=== PATIENT | female | born 2005 | race Caucasian/White ===

== ENCOUNTER 2023-10-02 08:56 | Emergency (ER) | payer OTHER, SELFPAY ==
[2023-10-02 09:05] VITALS: BP 119/70; PULSE 64; RESP 18; TEMP 36.3; O2SAT 100
[2023-10-02 09:06] VITALS: BP 119/70; PULSE 64; RESP 18; TEMP 36.3; O2SAT 100
--- NOTE | 2023-10-02 09:19 | ED.URI ---
HPI - URI/Sore Throat General Chief Complaint: Upper Respiratory Infection Stated Complaint: Cold symptoms Source: patient and RN notes reviewed Mode of arrival: ambulatory Limitations: no limitations History of Present Illness HPI Narrative: 18-year-old female presented for complaint of nasal congestion, post nasal drainage, sinus pressure and cough for one week. Denies sob, wheezing, n/v/d/f/c. Taking Mucinex and ibuprofen. Family with similar symptoms. MD elicited complaint: cough Related Data Allergies Allergy/AdvReac Type Severity Reaction Status Date / Time Penicillins Allergy Severe Rash Verified 10/02/23 09:06 Review of Systems Review of Systems: CONSTITUTIONAL: Endorses malaise, denies chills, sweats, fever EYES: Denies visual changes, redness, or discharge ENT: Reports rhinorrhea, congestion, sinus pain, denies otalgia, sore throat CARDIOVASCULAR: Denies chest pain, palpitations, edema RESPIRATORY: Reports cough, post nasal drainage. Denies dyspnea GASTROINTESTINAL: Denies abdominal pain, nausea, vomiting, diarrhea SKIN: Denies rash or itching MUSCULOSKELETAL: denies myalgia NEUROLOGIC: Denies headache [facility] Surgical History Surgical History [place] teeth removed (04/2021) Family History Family History Father Skin cancer Depression Mother Hypertension Heart disease Thyroid disorder Sibling Heart disease Thyroid disorder Grandparent Leukemia Hypertension Heart disease Grandparent Alcoholism Depression Diabetes mellitus Social History Social History Smoking status: Never smoker Alcohol intake: current Drinks per week: 1 Substance use: never Substance use type: does not use Living arrangements: with family Occupation/Education: student Additional occupation/education comments: [employer] Gender identity (if verbalized by the patient): Female Agree to blood products: No Exam Narrative: GENERAL: well-appearing, nontoxic no acute distress. HEAD: Normocephalic EYES: PERRLA, conjunctivae clear ENT: Mucous membranes moist. TMs pearly rios with dull light reflex bilaterally; no tragal tenderness. Oropharynx not erythematous without lesions or exudate, no drooling, no hoarseness, no trismus, uvula midline. No tripod positioning, muffled voice, soft palate or pharyngeal wall bulging NECK: Supple. No lymphadenopathy CHEST: Clear to auscultation, breath sounds equal. HEART: Regular rate and rhythm. No murmur heard. SKIN: Warm, dry, no rash. NEURO: Alert and oriented x3. PSYCH: Normal mood and affect Course Course Emergency Course: Patient is aware of diagnosis, understands and agrees to treatment plan. Anticipatory guidance given. Patient agrees to follow-up as directed and is aware of reasons to seek care at the emergency department. Portions of this record may have been created with voice recognition software Level of Care: Express Care Visit Vital Signs Vital signs: Vital Signs Temperature 97.3 F L 10/02/23 09:05 Pulse Rate 64 10/02/23 09:05 Respiratory Rate 18 10/02/23 09:05 Blood Pressure 119/70 10/02/23 09:05 Pulse Oximetry 100 10/02/23 09:05 Oxygen Delivery Room Air 10/02/23 09:05 Temperature 97.3 F L 10/02/23 09:06 Pulse Rate 64 10/02/23 09:06 Respiratory Rate 18 10/02/23 09:06 Blood Pressure 119/70 10/02/23 09:06 Pulse Oximetry 100 10/02/23 09:06 Oxygen Delivery Room Air 10/02/23 09:06 reviewed MDM - URI/Sore Throat MDM Narrative Medical decision making narrative: Discussed physical exam findings.Discussed indication for supportive measures, pt will only start abx should sx persist/worsen after 3-5 more days. Advised supportive measures and signs/symptoms to go to the ER. Pt is appropriate for outpt treatment and f/u. Differential D
== END 2023-10-02 09:31 | disposition home or self-care (01) ==
PROVIDERS: Emergency Provider Nurse Practitioner Family
DX: J06.9 Acute upper respiratory infection, unspecified (principal)
CPT/HCPCS: 99213; G0463

== ENCOUNTER 2025-01-29 08:16 | Emergency (ER) | payer OTHER, SELFPAY ==
--- OUTSIDE RECORDS SUMMARY | 2022-03-11 06:10 | XMS_ITS | Continuity of Care Document ---
Author Organization [facility] Address [address] [place] [address] Phone Care Team Providers Care Procurement Inspector Name Role Phone Christine Hyatt MD Unavailable Unavailable Allergies, Adverse Reactions, Alerts Substance Reaction Status Criticality penicillin V Hives Active No Information Procedures Procedure Date Brief Emotional/Behavioral A ssessment, With Scoring/Doct, Per Stndrd Instrument Pt inelig neg scrn depres IMMUN ADMIN (INC PERCUTANEOUS) EACH ADDT L FLU VAC NO PRSV 4 ROBERTA, 0.5mL DOSAGE IMMUN ADMIN (INC PERCUTANEOUS) SINGLE, F IRST INJ (Bexsero) Meningococcal Recombinant, Pro tein/Outer Membrane PREVENTATIVE-EST: BODY MASS INDEX DOCD SYST BP LT 130 MM HG DIAST BP 80-89 MM HG Brief Emotional/Behavioral A ssessment, With Scoring/Doct, Per Stndrd Instrument Brief Emotional/Behavioral A ssessment, With Scoring/Doct, Per Stndrd Instrument Clin depression screen doc PREVENTATIVE-EST: 39 BODY MASS INDEX DOCD SYST BP GE 130 - 139MM HG DIAST BP 80-89 MM HG IMADM ANY ROUTE 1ST VAC/TOX FLU VAC NO PRSV 4 ROBERTA, 0.5mL DOSAGE OFFICE [id number]-EORBOICN BODY MASS INDEX DOCD ROUTINE VENIPUNCTURE OFFICE [id number] Pt inelig neg scrn depres IMADM ANY ROUTE 1ST VAC/TOX MENACTRA MENINGOCOCCAL CONJUGATE, QUAD, VACCINE PREVENTATIVE-EST: 04-30 BODY MASS INDEX DOCD PREVENTATIVE-EST: 04-30 OFFICE [id number] BODY MASS INDEX DOCD Advance Directives Directive Yes / No Effective Date File Name Life Support Not Answered N/A N/A Intubation Not Answered N/A N/A Antibiotics Not Answered N/A N/A IV Fluid Support Not Answered N/A N/A Tube Feed Not Answered N/A N/A Other Directive N/A N/A WARNING:The information contained in this section is historical and is provided for information only and does not constitute a legal document or any assurance that the information is still accurate. Please verify the information with the banegas of the legal document before using it for clinical purposes. Encounters Encounter Description Practice Location Reason(s) For Visit Diagnoses Date Provider Providers Copied on Encounter PREVENTATIVE -EST: [facility], [address], [place], [place], [address] , tel:[phone] [facility] well exam (chief complaint) Encounter for general adult medical examination without abnormal findingsAnxiety disorder, unspecified typeIncreased BMI 2 Olena King. [address] [facility], [place], [place], [address], . tel:[phone] Referring Provider: Christine Hyatt, [address] [place] [address], [place], [address] . tel:[phone] PREVENTATIVE -EST: [address] [facility], [address], [place], [place], [address] , tel: [phone] [facility] well exam (chief complaint) Well Adult ExamAnxiety disorder, unspecified type Oct-2 1 Olena Christine. [address] [facility], [address], [place], [place], [address], . tel:[phone] Referring Provider: Christine Hyatt, [address] [facility] [address], [place], [address] . tel:[phone] OFFICE [id number] TAILED [facility], [address], [place], [place], [address] , tel:[phone] [facility] acute problem (chief complaint) Rapid heart beatAnxiety disorder, unspecified typeFatigue, unspecified type Jul-2 1 Olena Christine. [address] [facility], [address], [place], [place], [address], . tel:[phone] Referring Provider: Christine Hyatt, [address] [facility] [address], [place], [address] . tel:[phone] OFFICE CRGOG-KKE-ZP PANDED [facility], [address], [place], [place], [address] , tel:[phone] [facility] acute problem (chief complaint) Robin dela cruz Feb-0 1 Veena King. [address] [facility], [place], [place], [address], [place]. tel:[phone] Referring Provider: Christine landaverde, [address] [facility], [place], [address] . tel:[phone] PREVENTATIVE -EST: 12-17 [facility], [address], [place], [place], [address] , tel:[phone] [facility] well exam (chief complaint) Encounter for routine child Aug-0 0 Olena Christine. [address] [facility], [address], [place], [place], [address], . tel:[phone] Referring Provider: Christine Hyatt, [address] [facility] [address], [place], [address] . tel:[phone] PREVENTATIVE -EST: 04-30 [facility] [address], [place], [place], [address] , tel: [phone] [facility] well exam (chief complaint) Encounter for routine child 9 Olena King. [address] [facility], [place], [address], . tel:[phone] Referring Provider: Christine Hyatt, [address] [place] [address] A, [place], [address] . tel:[phone] OFFICE [id number]-[id number]-ZK PANDED [facility] [address] [facility], [place], [place], [address] , tel: [phone] [facility] acute problem (chief complaint) Acute otitis externa of left ear, unspecified type 9 David Hawthorne. [address] [facility], [facility] [place], [address], . [phone] Referring Provider: Christoph Hernandez, [address] [facility] [address], [place], [address] . tel:[phone] [facility] [address], [place], [place], [address] , tel: [phone] [facility] acute problem (chief complaint) Acute suppr otitis media w/o spon rupt ear drum, rAcute upper respiratory infection, unspecified 9 Veena King. [address] [facility], [place], [place], [address], [place]. tel:[phone] Referring Provider: Christine landaverde, [address] [facility], [place], [address] . tel:[phone] [facility] [address] [facility], [place], [place], [address] , tel: [phone] [facility] acute visit (chief complaint) Acute sinusitis, unspecified 9 Danish Aparicio. [address] [facility], [address], [place], [place], [address], . tel:[phone] Referring Provider: Markus Peng, [address] [facility] [address], [place], [address] . tel:[phone] [facility] [address], [place], [place], [address] , tel:[phone] [facility] Encounter for routine child Aug-2 7-201 8 Olena Christine. [address] [facility] [address], [place], [place], [address], . tel:[phone] Referring Provider: Christine Hyatt, [address] [place] [address] A, [place], [address] . tel:[phone] [facility] [address] [facility], [place], [place], [address] , tel:[phone] [facility] Acute sinusitis, unspecified Aug- 2-201 8 Danish Aparicio. [address] [facility] [address], [place], [place], [address], . tel:[phone] Referring Provider: Markus Peng, [address] [place] [address] [address], [place], [address] . tel:[phone] [facility] [address] [facility], [place], [place], [address] , tel:[phone] [facility] No Information Nov- 6-201 7 Olena Christine. [address] [place] [address] A, [place], [place], [address], . tel:[phone] [facility] [address], [place], [place], [address] , tel:[phone] [facility] Subacute sinusitis, unspecified locationSuppurat yair otitis media of left ear, unspecified chronicity Apr- 4-201 7 David Hawthorne. [address] [facility], [facility] [address], [place], [place], [address], . tel:[phone] Referring Provider: Christine landaverde, [address] [facility], [place], [address] . tel:[phone] [facility], [address], [place], [place], [address] , tel: [phone] [facility] Encounter for routine child health examination w/o abnormal findingsOsgood-S chlatter's disease of both knees 2201 7 Olena Christine. [address] [facility], [address], [place], [place], [address], . tel:[phone] Referring Provider: Christine Hyatt, [address] [place] [address] [address], [place], [address] . tel:[phone] [facility], [address], [place], [place], [address] , tel:[phone] [facility] Encounter for routine child health examination w/o abnormal findingsHand lesionOther developmental disorders of scholastic skills 7-201 6 Olena Christine. [address] [facility] [place], [address], . tel:[phone] Referring Provider: Christine Hyatt, [address] [place] [address] [address], [place], [address] . tel:[phone] [facility], [address], [place], [place], [address] , tel:[phone] [facility] Hand lesion 5-201 6 Olena Christine. [address] [facility], [address], [place], [place], [address], . tel:[phone] Referring Provider: Christine Hyatt, [address] [place] [address] [address], [place], [address] . tel:[phone] [facility], [address], [place], [place], [address] , tel:[phone] [facility] Pain in limb 8201 5 Olena Christine. [address] [facility], [address], [place], [place], [address], . tel:[phone] Referring Provider: Christine Hyatt, [address] [place] [address] [address], [place], [address] . tel:[phone] [facility] [address], [place], [place], [address] , tel:[phone] [facility] Routine child health examOther specific developmental learning difficultiesDRUG ALLERGY NECContusion of unspecified siteNEED FOR PROPHYLACTIC VACCINATION AND INOCULATION, OTHER VIRAL DISEASESNeed for prophylactic vaccination and inoculation against other specified single bacterial disease 3 0-201 5 Olena Christine. [address] [place], [place], [address], . tel:[phone] Referring Provider: Christine Hyatt, [address] [place] [address], [address] . tel:[phone] [facility] [address] [facility], [place], [place], [address] , tel:[phone] [facility] Routine or child health checkDRUG ALLERGY NECOther specific developmental learning difficultiesRout ine or child health check Nov-0 6-201 3 Olena Christine. [address] [place], [place], [address], . tel:[phone] Referring Provider: Christine Hyatt, [address] [place] [address], [place], [address] . tel:[phone] [place] [address], [place], [place], [address] , tel:[phone] [facility] No Information Nov-0 3-201 3 David Hawthorne. [address] [place] [address], [address], . tel:[phone] [facility] [address] [facility], [place], [place], [address] , tel:[phone] [facility] ROUTIN CHILD HEALTH EXAMAbdominal pain, generalizedDRUG ALLERGY NECOther specific developmental learning difficultiesRout ine infant or child health check Nov-0 2-201 2 Olena Christine. [address] [facility], [place], [place], [address], . tel:[phone] Referring Provider: Christine Hyatt [address] [place] [address], [address] . tel:[phone] [facility] [address], [place], [place], [address] , tel: [phone] [facility] No Information 2 David Christoph. [address] [facility], [facility] [place], [address], . tel:[phone] Referring Provider: Christoph Hernandez, [address] [facility], [place], [address] . tel:[phone] [facility], [address], [place], [place], [address] , tel: [phone] [facility] Routine infant or child health checkOther specific developmental learning difficultiesDRUG ALLERGY NECDRUG ALLERGY NECOther specific developmental learning difficultiesRout ine infant or child health check 1 Olena King. [address] [facility] [address], [place], [place], [address], . tel:[phone] Referring Provider: Christien Hyatt, [address] [place] [address], [address] . tel:[phone] [facility], [address], [place], [place], [address] , tel: [phone] [facility] Cervicalgia 1 David Hawthorne. [address] [facility], [facility] [address], [place], [place], [address], . tel:[phone] Referring Provider: Christoph Hernandez, [address] [place] [address], [place], [address] . tel:[phone] [facility] [address], [place], [place], [address] , tel: [phone] [facility] No Information 200 7 Olena King. [address] [facility] [place], [place], [address], . [phone] Family History Family Member Type Diagnosis Age At Onset No Information Immunizations Vaccine Date Status Comments Fluzone Quad, preservative free, split virus, 0.5mL dosage administered Source: New Immunization Record meningococcal B, OMV, 2 dose schedule administered Source: New Immuniza tion Record Fluzone Quad, preservative free, split virus, 0.5mL dosage administered Source: New Immunization Record meningococcal MCV4P administered Source: New Immunization Record Fluzone Quad , spli t virus, 0.5mL dosage administered Source: Other Provid er Influenza, injectable, quadrivalent, preservative free, 0.5mL dosage administered Source: New Immuniza tion Record HPV (9-valent) administered Source: New I mmunization Record Influenza, injectable, quadrivalent, preservative free, 3 yrs or older administered Source: New Immuniz ation Record HPV (quadrivalent) administered Source: N ew Immunization Record HPV (quadrivalent) administered Source: N ew Immunization Record Meningococcal MCV4O administered Source: New Immunization Record Tdap administered Source: New Imm unization Record Influenza, live, intranasal, quadrivalent administered Source: New Immuniza tion Record Flu Intranasal administered Source: New I mmunization Record Influenza virus vaccine, intranasal administered Source: New Immuniza tion Record Influenza virus vaccine, intranasal administered Source: New Immuniza tion Record 26607 - Hepatitis_A administered Source: Source Unspecified 34598 - Influenza administered Source: So urce Unspecified 85343 - Influenza administered Source: So urce Unspecified 02789 - Hepatitis_A administered Source: Source Unspecified 37271 - Influenza administered Source: So urce Unspecified 39579 - MMR administered Source: Source Unspecified 27065 - Varicella administered Source: So urce Unspecified 67631 - DTaP_DTP_DT_PEDS administered Sherron rce: Source Unspecified 80463 - Polio_OPV_IPV administered Source : Source Unspecified 30662 - DTaP_DTP_DT_PEDS, Hib administere d Source: Source Unspecified 57280 - MMR administered Source: Source Unspecified 98166 - Pneumococcal_PCV administered Sehrron rce: Source Unspecified 57681 - Varicella administered Source: Jennifer castro Unspecified 63637 - Polio_OPV_IPV administered Source : Source Unspecified 97811 - Hepatitis_B administered Source: Source Unspecified 06601 - Hib administered Source: Source Unspecified 35435 - DTaP_DTP_DT_PEDS administered Sherron rce: Source Unspecified 13195 - Pneumococcal_PCV administered Sherron rce: Source Unspecified 21645 - Hib administered Source: Source Unspecified 07167 - Pneumococcal_PCV administered Sherron rce: Source Unspecified 47100 - Polio_OPV_IPV administered Source : Source Unspecified 71912 - DTaP_DTP_DT_PEDS administered Sherron rce: Source Unspecified 96336 - Hib administered Source: Source Unspecified 08911 - Pneumococcal_PCV administered Sherron rce: Source Unspecified 94375 - Hepatitis_B administered Source: Source Unspecified 29646 - DTaP_DTP_DT_PEDS administered Sherron rce: Source Unspecified 64846 - Polio_OPV_IPV administered Source : Source Unspecified 97991 - Hepatitis_B administered Source: Source Unspecified Payers Payer name Insurance type Covered green party ID Authoriza tion(s) UHC CHOICE LUANN CI [id number] UHC CHOICE LUANN CI [id number] UHC CHOICE LUANN CI [id number] UHC CHOICE LUNAN CI [id number] UHC CHOICE LUANN CI [id number] UHC CHOICE LUANN CI [id number] [employer] U[employer] OPTIONS PPO CI [id number] Social History Type Description Quantity Date Captured Comments Alcohol Use Details Unknown Caffeine Use Details Unknown Tobacco Use Status No Information Smoking Status No Information Sex Female Vital Signs Date / Time: Height Weight BMI Pulse Rate Blood Pressure Temperature Respiratory Rate Body Surface Area Head Circumference Head Circ. Percentile Wt./[place]. Percentile BMI percentile Pulse Ox Inhaled Ox 10:48 AM 69.75 in 92.896 kg (204.80 lbs) 29.5 9 kg/m eter (2) 88 /min 121/82 mm[Hg] 93 Chief Complaint And Reason For Visit From encounter dated '03/11/2022 11:10'. well exam (chief complaint). 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 D ue on due Goal Vision screen (18-21 yr). Du e on due Goal Hematocrit . Due on due Goal Hearing screen (10-21 yr). D ue on due Goal Hematocrit . Due on due Goal Vision screen (18-21 yr). Du e on due Goal Hearing screen (10-21 yr). D ue on due Goal Vision screen (15-17 yr). Du e on due Goal Hematocrit . Due on due Goal Hearing screen (10-21 yr). D ue on due Goal Vision screen (15-17 yr). Du e on due Goal Hematocrit . Due on due Goal Hearing screen (10-21 yr). D ue on due Goal Vision screen (15-17 yr). Du e on due Goal Hematocrit . Due on 020 due Goal Hearing screen (10-21 yr). D ue on due Goal Vision screen (15-17 yr). Du e on due Goal Hematocrit . Due on due Goal Hematocrit . Due on due Goal Vision screen (15-17 yr). Du e on due Goal Vision Screen (15-16 yr). Du e on due Goal Hearing screen (10-21 yr). D ue on due Goal Vision Screen (15-16 yr). Du e on due Goal Hematocrit . Due on due Goal Vision screen (15-17 yr). Du e on due Goal Hearing screen (10-21 yr). D ue on due Goal Vision Screen (15-16 yr). Du e on due Goal Hematocrit . Due on due Goal Vision screen (15-17 yr). Du e on due Goal Hearing screen (10-21 yr). 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 education major/no meds except multivitaminAllergies-- penicillin/Just moved to different neighborhoodCONCERNS--does not like being my herself at doctor/school causes anxiety as well/seeing a counselor since came in for racing heart/seeing the counselor for a few months--it has helped/When they moved, eating lots of fast food and aware she gained weight/ acute problem (comments) For the past one month, less energy and more emotional/Needs to sleep a lot/Patient says she does not feel the same/A few days ago, said that her heart was racing and also felt heart in her throat--Mom thought she had SVT(Mom used to get it and so does her MGF--he had ablation for it)/Mom would put her in position to get rid of her SVT/Maternal aunt also with heart problems/Mother wants her thyroid checked//Dad says she is anxious about schooling--lots of pressure from AP classes/Somewhat upset by COVID/Mom recently with hysterectomy and complications in the past on month/No family history of anxiety except maternal aunt with some anxiety/Mom, maternal aunts and MFG are all hypothyroid//When patient had the rapid heart beat it lasted for 15minutes--started to get sweaty--no dizziness or syncope/did not measure pulse but has pulse oximeter at [facility]/denies OTC medicine/denies caffeine use/Periods have been regular acute problem Chief complaint: thyroid concerns. acute problem Chief complaint: sore in mouth. had cold symptoms 2 weeks ago - resolving about 4-5 days ago3 siblings had cold symptoms starting a few days before Lucita and they all tested negative for [id number] a sore throat initially with the cold symptoms at the end of last week, reports sore throat is gone, but there is a sore white spot in her mouth now that hurts when she is eating and opens her mouth wideno fevers/congestion/runny nose/cough/trouble breathingno bellyache/v/n/dno headaches/body achesstill able to eat/drink well - but certain foods make pain worse does like spicy foodsno known sick/COVID19 exposuresattending in person school - no exposures there well exam There are no pat ient/parental concerns today. no medsAllergies-Penicillinno glasses well exam no meds/allergie s--PCNCONCERNS--mid back pain(also on sides) for two weeks/pain comes and goes/usually occurs at night/sometimes has pain for one hour at night/no pain for the past 2 nights/Grades pain as 8 out of 10 at night only/During da pain is 4 out of 10/Maternal uncle-- of kidney failure as baby/Mother--had bleeding from kidney when teen--never found the sourcematernal aunt--bad kidneysMaternal aunt with three kidneys an three ureters/hers was discovered when she had back pain/denies an injury to her back--just started to hurt/ acute problem Chief complaint: L ear pain. left ear pain for the last couple of days. family was on vacation in [place]. she weas doing a lot of swimming...pain is just getting worse. she was taking a lot of motrin for the last 3 days. no fever no diarrhea or emesis. no rash. acute problem Chief complaint: congestion for one week and right ear pain started last night. congestion/cough for a little over 1 week has felt feverish at times in the AM, but has never taken her temperaturewoke up in the middle of the night last night because of right ear pain - benadryl and ibuprofen did help her get back to sleephas been using claritin and decongestantsister with a cold and ear infectionContext notable for ill contact at home/school. acute visit Chief complaint: sinus pressure.Symptoms started 1 days ago; are worsening. got sick 10 d ago;prone to sinusitis;taking Claritin, ibuprofen;restinghad a cold - got better, then got worse;has had a fever - low gradenow L ear hurting; acute visit ; are worsening. Associated symptoms include cough and nasal congestion/drainage. Functional Status Date Functional Assessmen t No Information Instructions Date Instruction Additional Infor franko Well teen/Meningitis B and flu vaccine/Discussed safety and nutrition/Return in one month for men B#2/Return in one year for a physical exam/ Related to Encounter for general adult medical examination without abnormal findings Oct-28-2022 Discussed getting on e hour a day of exercise/eliminating all soda and eating a healthy diet/Decreasing screentime to 2 hours a day with breaks every 30minutes for 10minutes.Advised to lose about 25pounds Related to Increased BMI Lucita saw a dependency counselor or and her anxiety is greatly improved/Score today is low for anxiety/ Related to Anxiety disorder, unspecified type Well Child 12-21 Years Seeing counselor/Adv ised to also decrease screentime and increase exercise/Return if needs medication/ Related to Anxiety disorder, unspecified type Well teen/Flu vaccin e today/Will return next summer for meningitis B#1 and #2/Discussed safety, nutrition, and screentime/Gained 17pounds this year and needs to increase exercise and change diet/Return in one year for a physical exam/ Related to Well Adult Exam Well Child 12-21 Years Lucita has had some fatigue and there is a strong family history of thyroid disease/I would like to check her free T4 and TSH today/I will call you with the results/ Related to Fatigue, unspecified type Lucita has been havi ng some anxiety in the past year/I would like her to see a counselor/I have made a care management referral and someone from my office will call you next week to arrange this/ Related to Anxiety disorder, unspecified type There is a strong fa yumiko history of SVT-mother, MGF, and multiple maternal aunts/Lucita had a 15minute episode of rapid heat beat and felt unusual with it/I would like Lucita to be seen by cardiology at [facility]/Call [phone] and ask for the cardiology office/Call us back with the date of your visit so that we can send a referral/Avoid caffeine and cold medicines Related to Rapid heart beat Lucita's mouth sore is consistent with a canker sore.Canker sores usually get better by themselves within a few weeks. To help with pain, you can use tylenol or motirn and/or swishing and spitting magic mouthwash - 1:1 mixture of OTC liquid benadryl and maalox. You can also avoid eating or drinking hot and spicy foods. Please call for any new or worsening symptoms, or if not improving. Related to Robin candelarioe Well teen/Menloganra # 2 today/Discussed safety and nutritionReturn in one year for a physical exam/ Related to Encounter for routine child Well Child 12-21 Years Well child/Vaccines are up to date/Discussed safety and nutrition/Return in one year for a physical exam/ Related to Encounter for routine child Well Child 12-21 Years please use antibioti cs as presribed. If she has increasing problems please call the office. Related to Acute otitis externa of left ear, unspecified type Upper respiratory in fections are viral infections of the nose and throat. Viruses can cause yellow/green nasal discharge that does not require antibiotics.Clear the nasal mucous with saline and bulb syringe or flo pot. A humidifier in the bedroom can help.Acetaminophen or ibuprofen can help with discomfort.Dark honey (particularly Buckwheat honey) can decrease the severity of cough. Never use honey in children under 12 months of age as it can lead to a very serious illness that cause paralysis.Call back if fever lasts more than 72hrs, congestion lasts more than 2-3wks, or new symptoms develop (ear pain or new fever). Call back immediately if breathing becomes difficult or if your child starts to act very sick. Related to Acute upper respiratory infection, unspecified -Current standard of pediatric care for middle ear infections in children greater than 2 years old does not include antibiotic use unless the symptoms persist for more than 3 days.-You may use ibuprofen or acetaminophen as needed for comfort; dosage should be based on your child's weight.-If you are not seeing improvement after 72 hours of symptom treatment, develop fever, or you notice ear drainage, you may begin the prescribed antibiotic as directed. Related to Acute suppr otitis media w/o spon rupt ear laura, r Cefdinir Sinusitis i s an infection of one of the sinuses that drain into the nose. It is usually starts as a cold or allergies, but those symptoms either get worse or last for more than 10 days. An antibiotic can clear up a sinus infection, but it may take 2-3 days of medicine before your child begins to feel better. Take all of the medicine you are prescribed. Other cough or cold medicines do not usually help. Clearing mucus from the nose with saline spray or a humidifier can help your child feel better. Drinking fluids can also help loosen mucus in the back of the throat. You can also give Tylenol or ibuprofen for fever or pain such as sore throat or headache.Call back if: - your child is not any better in 5 days - your child gets worse - your child has new symptoms including new fever, trouble breathing, is very sleepy, or has redness or swelling of cheeks, eyelids, or forehead - your child still has symptoms when done with the medicine Related to Acute sinusitis, unspecified Assessments Type Assessment Date assessment Encounter for general adult medi darryl examination wi assessment Anxiety disorder, unspecified ty pe assessment Increased BMI Patient Care Teams Name Effective Dates (start - stop) Status Members No Information
[2025-01-29 08:25] VITALS: BP 115/74; PULSE 65; RESP 18; TEMP 35.7; O2SAT 100
--- NOTE | 2025-01-29 08:46 | ED.EAR ---
HPI - Ear Problem General Chief complaint: Ear Stated complaint: Ear Pain Time Seen by Provider: 01/29/25 08:30 Source: patient and RN notes reviewed Mode of arrival: ambulatory Limitations: no limitations History of Present Illness HPI Narrative: 20-year-old female presents Express Care complaining bilateral ear pain for approximately 1 week. Patient states the pain is worse to the left than the right. Patient denies any upper respiratory symptoms, congestion, runny nose, cough, fevers, body aches, chills, sore throat, nausea vomiting, diarrhea, chest pain, or shortness of breath. Patient reports intermittent tinnitus to her ears. Patient denies any recent swimming. Patient denies any drainage. Patient also reports that there is pain to both sides of her jaw, left jaws worse than the right jaw. Patient denies any teeth grinding or chewing gum frequently. Related Data Allergies Allergy/AdvReac Type Severity Reaction Status Date / Time Penicillins Allergy Severe Rash Verified 01/29/25 08:25 Review of Systems Review of Systems: CONSTITUTIONAL: Denies fever, chills, or sweats. EYES: Denies visual changes, redness, or discharge. ENT: Denies rhinorrhea, congestion, sore throat. Positive for otalgia. MOUTH: POSITIVE FOR JAW PAIN. CARDIOVASCULAR: Denies chest pain, palpitations, or edema. RESPIRATORY: Denies cough or dyspnea. GASTROINTESTINAL: Denies abdominal pain, nausea, vomiting, or diarrhea. GENITOURINARY: Denies dysuria or hematuria. SKIN: Denies rash or itching. MUSCULOSKELETAL: Denies back pain, joint pain, or myalgia. NEUROLOGIC: Denies headache, numbness, or weakness. PSYCHIATRIC: Denies anxiety or depression. All other systems reviewed are negative, except as documented in HPI. [facility] Surgical History Surgical History [place] teeth removed (04/2021) Family History Family History Father Skin cancer Depression Mother Hypertension Heart disease Thyroid disorder Sibling Heart disease Thyroid disorder Grandparent Leukemia Hypertension Heart disease Grandparent Alcoholism Depression Diabetes mellitus Social History Social History Smoking status: Never smoker Alcohol intake: current Drinks per week: 1 Substance use: never Substance use type: does not use Living arrangements: with family Occupation/Education: student Additional occupation/education comments: [employer] Gender identity (if verbalized by the patient): Female Agree to blood products: No Comments At the time of my signature, I reviewed and agree with the nursing past medical, surgical, social, and family history. There is no relevant family history pertinent to the patient complaint. Exam Narrative: GENERAL: This is a well-nourished, well-developed adult, in no apparent distress. They are non ill-appearing, nontoxic appearing. HEAD: normocephalic, atraumatic. EYES: Sclera clear/white. Conjunctiva normal. Vision is grossly intact. Extraocular movements intact EARS: External ears normal, auditory canals clear and without drainage, TMs normal without perforation. Hearing grossly intact. No tragal tenderness. No mastoid tenderness. NOSE: External nose normal with no obvious nasal discharge, nasal turbinates without redness, no rhinorrhea. THROAT: Mucous membranes moist, posterior pharynx clear, without erythema or swelling. Uvula midline. OROPHARYNX: Good dentition. Tongue midline. No suspicious lesions or ulcerations. Left TMJ tender to palpate, right TMJ mildly tender to palpate, left greater than right. No clicking or popping, normal range of motion TMJ joints. No trismus. NECK: Neck supple, non-tender without lymphadenopathy, masses or thyromegaly. CARDIOVASCULAR: Regular rate and rhythm without murmurs, gallops, or rubs. RESPIRATORY: Clear to auscultation. Breath sounds equal bilaterally. No wheezes, rales, or rhonchi. SKIN: warm, Dry, intact with no suspicious lesions or rash, good texture and turgor. NEURO: awake, alert, and oriented to person, place and time. There were no obvious focal neurologic abnormalities. EXTREMITIES: No joint tenderness, effusion, or edema noted. Course Course Emergency Course: Portions of this record may have been created with voice recognition software Level of Care: Express Care Visit Vital Signs Vital signs: Vital Signs Temperature 96.3 F L 01/29/25 08:25 Pulse Rate 65 01/29/25 08:25 Respiratory Rate 18 01/29/25 08:25 Blood Pressure 115/74 01/29/25 08:25 Pulse Oximetry 100 01/29/25 08:25 Oxygen Delivery Room Air 01/29/25 08:25 Temperature 96.3 F L 01/29/25 08:25 Pulse Rate 65 01/29/25 08:25 Respiratory Rate 18 01/29/25 08:25 Blood Pressure 115/74 01/29/25 08:25 Pulse Oximetry 100 01/29/25 08:25 Oxygen Delivery Room Air 01/29/25 08:25 Reviewed Medical Decision Making MDM Narrative Medical decision making narrative: No evidence of ear infection. Symptoms appear to likely be related to the TMJ joint. Left is greater than right. Will Prescribe a course of prednisone and discussed supportive therapy. Discussed physical exam findings. Advised supportive measures and signs/symptoms to go to the ER. Pt is appropriate for outpt treatment and f/u. Differential Diagnosis Differential Diagnosis: Otitis media, otitis externa, TMJ disorder, TMJ arthralgia, earache Vital Signs Vital Signs: Vital Signs Temperature 96.3 F L 01/29/25 08:25 Pulse Rate 65 01/29/25 08:25 Respiratory Rate 18 01/29/25 08:25 Blood Pressure 115/74 01/29/25 08:25 Pulse Oximetry 100 01/29/25 08:25 Oxygen Delivery Room Air 01/29/25 08:25 Temperature 96.3 F L 01/29/25 08:25 Pulse Rate 65 01/29/25 08:25 Respiratory Rate 18 01/29/25 08:25 Blood Pressure 115/74 01/29/25 08:25 Pulse Oximetry 100 01/29/25 08:25 Oxygen Delivery Room Air 01/29/25 08:25 Critical Care Time Critical Care Time Critical Care Time: No Discharge Plan Discharge Clinical Impression: Acute pain of both ears TMJ arthralgia Qualifiers: Laterality: bilateral Qualified Code(s): M26.623 - Arthralgia of bilateral temporomandibular joint Patient Disposition: Home Condition: Stable Instructions: Temporomandibular Disorder (ED), Earache (ED) Additional Instructions: Your ears do not look infected today. This may be related to TMJ disorder though this condition usually is one-sided Take prednisone as directed. You may take ibuprofen 600 mg to 800 mg every 6-8 hours. Do not exceed more than 800 mg of ibuprofen per dose. Do not exceed more than 3200 mg ibuprofen in a day. You may take up to 1000 mg Tylenol every 6-8 hours. Do not exceed 1000 mg per dose, do exceed more than 4000 mg of Tylenol in a day. Consider eating a softer non chewing diet avoiding hard foods or chewing gum. Avoid any tooth grinding, clinching, nail biting. May wear a mouth guard at night Maintain good head and neck posture. Follow-up PCP in 3-5 days. Patient Language: Czech Prescriptions: New prednisone 20 mg tablet 40 mg PO DAILY 5 Days Qty: 10 0RF Follow-up/Referrals: UNKNOWN,DOCTOR [Primary Care Provider] Time of Disposition: 08:43
== END 2025-01-29 08:46 | disposition home or self-care (01) ==
DX: H92.03 Otalgia, bilateral (principal); M26.623 Arthralgia of bilateral temporomandibular joint
CPT/HCPCS: 99213; G0463